=== PATIENT | male | born 1955 | race Caucasian/White ===

== ENCOUNTER 2017-11-28 08:04 | Outpatient (RCR) | payer BC | END 2017-12-04 | LOC: PT 08:04 | PROVIDERS: ATTEND Specialist | DX: M25.512 Pain in left shoulder (principal); M25.612 Stiffness of left shoulder, not elsewhere classified; M75.42 Impingement syndrome of left shoulder; M62.81 Muscle weakness (generalized) ==

== ENCOUNTER 2017-12-12 17:00 | Outpatient (RCR) | payer BC | END 2018-01-04 | LOC: PT 17:00 | PROVIDERS: ATTEND Specialist | DX: M75.42 Impingement syndrome of left shoulder (principal); M25.512 Pain in left shoulder; M25.612 Stiffness of left shoulder, not elsewhere classified; M62.81 Muscle weakness (generalized) ==

== ENCOUNTER 2018-03-05 17:00 | Outpatient (RCR) | payer BC | END 2018-03-06 | LOC: PT 17:00 | PROVIDERS: ATTEND Specialist | DX: S46.022D Laceration of muscle(s) and tendon(s) of the rotator cuff of left shoulder, subsequent encounter (principal); M75.42 Impingement syndrome of left shoulder; M25.512 Pain in left shoulder; M25.612 Stiffness of left shoulder, not elsewhere classified; M62.81 Muscle weakness (generalized) ==

== ENCOUNTER 2018-03-23 13:00 | Outpatient (RCR) | payer BC | END 2018-04-06 | LOC: PT 13:00 | PROVIDERS: ATTEND Specialist | DX: S46.022D Laceration of muscle(s) and tendon(s) of the rotator cuff of left shoulder, subsequent encounter (principal); M25.512 Pain in left shoulder ==

== ENCOUNTER → 2018-04-17 | Day surgery (SDC) | payer BC ==
[2018-04-16 11:10] LABS: BASOPHILS # (AUTO) 0.1 (0.0-0.1); BASOPHILS % 0.7 % (0.0-1.0); EOSINOPHILS # (AUTO) 0.2 (0.0-0.4); HEMATOCRIT 41.5 % (38.2-49.6); HEMOGLOBIN 14.3 g/dL (14.0-18.0); LYMPHOCYTES # (AUTO) 1.5 (1.0-3.2); MEAN CORPUSCULAR HEMOGLOBIN 31.1 pg (28-32); MEAN CORPUSCULAR HGB CONC 34.5 g/dL (31-35); MEAN CORPUSCULAR VOLUME 90.2 fL (81-99); MONOCYTES # (AUTO) 0.9 (0.2-0.8); MONOCYTES % 10.8 % (4.4-11.3); NEUTROPHILS # (AUTO) 5.6 (2.1-6.9); NEUTROPHILS % 68.1 % (38.7-80.0); PLATELET COUNT 166 x10e3/uL (140-360); RED CELL DISTRIBUTION WIDTH 13.9 % (11.7-14.4)
[2018-04-16 11:35] LABS: ANION GAP 14.9 mmol/L (8-16); CALCIUM 10.9 mg/dL (8.4-10.2); CREATININE, SERUM 2.07 mg/dL (0.72-1.25); POTASSIUM 3.9 mmol/L (3.5-5.1)
--- NOTE | 2018-04-16 11:54 | Diagnostic Imaging Report ---
EXAMINATION: PA and lateral views of the chest. COMPARISON: None CLINICAL HISTORY: Preop shoulder surgery DISCUSSION: The lungs are well-inflated. No focal airspace consolidation, pleural effusion, or pneumothorax. Cardiomediastinal contour and pulmonary vasculature are within normal limits. No acute osseous abnormalities. Surgical anchors project over the right humeral head. IMPRESSION: No acute cardiopulmonary abnormalities. Signed by: Dr. Arben Palacios M.D. on 04/16/2018 11:50 AM
[~2018-04-17] MED LIST: ACETAMINOPHEN 1000 MG/100 ML IV ONE; AMLODIPINE BESYL5 MG PO; ASPIRIN81 MG; CEFAZOLIN SOD 1 GM VIAL ONE; DEXAMETHASONE SOD PHOS INJ 4 MG/ML VIAL ONE; EPHEDRINE SULFATE INJ 50 MG/10 ML SYR ONE; EPINEPHRINE HCL INJ 1 MG/ML AMP ONE; FENTANYL CITRATE/PF 100MCG/2 ML INJ ONE; FISH OIL 1,0001 EAC2; HYDROCHLOROTH12.5 M1; HYDROCODONE/APAP 7.5MG-325MG 1 EA TAB ONE; LIDOCAINE 2% /EPINEPHRINE 20 ML SDV INJ ONE; LIDOCAINE HCL 2% LOCAL INJ 5 ML SDV VIAL INJ ONE; METOPROLOL TART50 MG PO; MIDAZOLAM HCL 2 MG/2 ML VIAL ONE; MOTRIN200 MG PO; ONDANSETRON HCL INJ 2 MG/ML VIAL ONE; ONE DAILY1 EAC1; PROPOFOL IV EMULSION 10 MG/ML 20 ML VIAL ONE; ROCURONIUM BROMIDE 10 MG/ML 5ML VIAL ONE; ROPIVACAINE 0.5% 5 MG/ML 30 ML SDV ONE; SEVOFLURANE INHAL SOLN 250 ML PEN BTL ONE; SUGAMMADEX SODIUM 200 MG/2 ML VIAL IV ONE; VITAMIN D1000 UNI1 PO
[2018-04-17 13:00] VITALS: BP 124/72
--- NOTE | 2018-04-17 16:23 | Operative Report ---
DATE OF PROCEDURE: April 17, 2018 PACKAGE DESIGNER: Abdoul Hahn PA-C The patient was brought to the operating room for induction of anesthesia. Throughout this case, my PA's assistance was necessary for retraction of soft tissue and positioning of the extremity. This allows for efficient and technically successful execution of the operation and is considered medically necessary. PREOPERATIVE DIAGNOSIS: Left shoulder rotator cuff tear. POSTOPERATIVE DIAGNOSIS: Left shoulder rotator cuff tear. PROCEDURES: Left shoulder arthroscopy, subacromial decompression/bursectomy, and rotator cuff repair. INDICATIONS: The patient is a 63-year-old gentleman with several month history of pain and weakness in his left shoulder. Clinic exam and MRI findings are consistent with a large rotator cuff tear. The findings and options have been discussed. He has failed conservative management and would like to proceed with definitive intervention. The risks and benefits of a rotator cuff repair have been explained. He states he understands and wishes to proceed. DESCRIPTION OF PROCEDURE: The patient was brought to the operating room and placed under general anesthetic. He received a regional block and prophylactic antibiotics in the holding area. He was positioned in the beach chair position on the shoulder table. His left upper extremity was prepped and draped in a sterile manner. A preoperative time-out was performed. A standard posterior arthroscopy portal was established. The shoulder was insufflated with sterile saline and systematically inspected. He was noted to have degenerative fraying of the labrum and the subscapularis. The glenohumeral surfaces showed some grade 1 changes of chondromalacia. There was a massive rotator cuff tear involving the entirety of the supraspinatus and infraspinatus. A lateral working portal was established. An electro blade mechanical shaver was introduced in the shoulder joint. The labrum and areas of chondromalacia and partial thickness tearing of the subscapularis were gently debrided. The scope was then placed into the subacromial space. Extensive subacromial bursitis was encountered. Notable time was taken to perform a subacromial bursectomy and bone decompression. A grasper was used to ensure the mobility of the rotator cuff. The greater tuberosity was gently decorticated. Incidentally, the biceps tendon was inspected and noted to be slightly frayed. This was released and incorporated into the tendon repair. An Arthrex bioabsorbable SpeedBridge construct was used to repair the rotator cuff tendon down to bleeding cancellous bone. Two scout holes were established at the articular margin. Bioabsorbable suture anchor pre-loaded with fiber tape stitches were seated. A good bone quality was encountered. An anterior shuttle relay portal was established. An ArthLuminoso suture passer was used to pass the fiber tape stitches through healthy portions of the tendon. These were then sequentially applied to a secondary suture anchor that was used to secure the tendon down to bleeding cancellous bone. This was done in an anterior to posterior and posterior to anterior construct. Quite nice secure fixation was felt to be obtained. The arthroscopic instruments were then removed. The portal incisions were closed with nylon stitches. A sterile bandage was applied. The patient was extubated and transported to the recovery room in stable condition. An ultra sling have been applied prior to transport. Job#: [id number] VAS
== END | disposition home or self-care (01) ==
LOC: OR 08:20
PROVIDERS: ATTEND Specialist
DX: S46.022A Laceration of muscle(s) and tendon(s) of the rotator cuff of left shoulder, initial encounter (principal); M94.212 Chondromalacia, left shoulder; M75.52 Bursitis of left shoulder; E11.9 Type 2 diabetes mellitus without complications; I10 Essential (primary) hypertension; F41.9 Anxiety disorder, unspecified; Z88.6 Allergy status to analgesic agent; Z01.810 Encounter for preprocedural cardiovascular examination; Z01.812 Encounter for preprocedural laboratory examination; Z01.818 Encounter for other preprocedural examination; Z79.82 Long term (current) use of aspirin; Z79.84 Long term (current) use of oral hypoglycemic drugs; Z68.30 Body mass index [BMI] 30.0-30.9, adult; Z87.891 Personal history of nicotine dependence
CPT/HCPCS: 29827; 36415 ×2; 71046; 80048; 82948; 85025; 93005; C1713; J0171; J0690; J1100; J2001 ×2; J2250; J2405; J2795

== ENCOUNTER 2018-07-04 17:00 | Outpatient (RCR) | payer BC ==
[~2018-07-04 17:00] MED LIST changes: -ACETAMINOPHEN 1000 MG/100 ML IV ONE; -CEFAZOLIN SOD 1 GM VIAL ONE; -DEXAMETHASONE SOD PHOS INJ 4 MG/ML VIAL ONE; -EPHEDRINE SULFATE INJ 50 MG/10 ML SYR ONE; -EPINEPHRINE HCL INJ 1 MG/ML AMP ONE; -FENTANYL CITRATE/PF 100MCG/2 ML INJ ONE; -HYDROCODONE/APAP 7.5MG-325MG 1 EA TAB ONE; -LIDOCAINE 2% /EPINEPHRINE 20 ML SDV INJ ONE; -LIDOCAINE HCL 2% LOCAL INJ 5 ML SDV VIAL INJ ONE; -MIDAZOLAM HCL 2 MG/2 ML VIAL ONE; -ONDANSETRON HCL INJ 2 MG/ML VIAL ONE; -PROPOFOL IV EMULSION 10 MG/ML 20 ML VIAL ONE; -ROCURONIUM BROMIDE 10 MG/ML 5ML VIAL ONE; -ROPIVACAINE 0.5% 5 MG/ML 30 ML SDV ONE; -SEVOFLURANE INHAL SOLN 250 ML PEN BTL ONE; -SUGAMMADEX SODIUM 200 MG/2 ML VIAL IV ONE
== END 2018-07-06 ==
LOC: PT 17:00
PROVIDERS: ATTEND Specialist
DX: Z47.89 Encounter for other orthopedic aftercare (principal); S46.022D Laceration of muscle(s) and tendon(s) of the rotator cuff of left shoulder, subsequent encounter; M25.512 Pain in left shoulder; M25.612 Stiffness of left shoulder, not elsewhere classified; M62.81 Muscle weakness (generalized)

== ENCOUNTER 2018-07-18 17:00 | Outpatient (RCR) | payer BC | END 2018-08-06 | LOC: PT 17:00 | PROVIDERS: ATTEND Specialist | DX: Z47.89 Encounter for other orthopedic aftercare (principal); S46.022D Laceration of muscle(s) and tendon(s) of the rotator cuff of left shoulder, subsequent encounter; M25.512 Pain in left shoulder; M25.612 Stiffness of left shoulder, not elsewhere classified; M62.81 Muscle weakness (generalized) ==